=== PATIENT | female | born 2000 | race Caucasian/White ===

== ENCOUNTER 2022-12-06 10:58 | Emergency (ER) | payer BC ==
[~2022-12-06] VITALS: Ht 157.5 cm; Wt 54.5 kg
[2022-12-06 11:47] LABS: COLLECTION METHOD CLEAN CATCH
[2022-12-06 11:59] LABS: MUCOUS Present (NOT PRESENT); SQUAMOUS EPITHELIAL 0-2 /hpf (0-10); URINE BACTERIA Rare /hpf (NONE SEEN); URINE RBC 0-2 /hpf (0-2); URINE WBC 0-2 /hpf (0-2)
[2022-12-06 12:00] LABS: URINE APPEARANCE Clear (CLEAR/HAZY); URINE COLOR Yellow (YELLOW); URINE GLUCOSE Negative (NEGATIVE); URINE KETONE Negative (NEGATIVE); URINE PROTEIN(semi-quant) Negative (NEGATIVE)
[2022-12-06 12:01] LABS: URINE BLOOD Negative (NEGATIVE); URINE NITRATE Negative (NEGATIVE); URINE UROBILINOGEN 0.2 E.U/dL (0.2-1.0)
[2022-12-06] MEDS ORDERED: ZOFRAN ODT4 MG PO (12:38)
[2022-12-06 12:50] VITALS: BP 117/85; PULSE 97; TEMP 98.1
== END 2022-12-06 12:50 | disposition home or self-care (01) ==
LOC: COL.ER 10:58
PROVIDERS: Emergency Medicine
DX: S00.91XA Abrasion of unspecified part of head, initial encounter (principal); Z28.310 Unvaccinated for COVID-19; W18.30XA Fall on same level, unspecified, initial encounter; W22.8XXA Striking against or struck by other objects, initial encounter

== ENCOUNTER 2024-02-13 18:54 | Emergency (ER) | payer BC ==
[~2024-02-13] VITALS: Ht 157.5 cm; Wt 54.5 kg
[~2024-02-13 18:54] MED LIST: ZOFRAN ODT4 MG PO
[2024-02-13] MEDS ORDERED: PRISTIQ 50 MG T50 MG PO (19:05)
[2024-02-13] MEDS ORDERED: NS 1,000 ML IV ONE (19:15)
[2024-02-13 19:18] LABS: BASO # 0.1 K/mm3 (0.0-0.2); BASO % 0.7 % (0.0-2.0); EOS # 0.1 K/mm3 (0.0-0.7); EOS % 0.7 % (0.0-4.0); GRAN # 7.7 K/mm3 (1.4-6.5); GRAN % 72.4 % (42.2-75.2); HEMATOCRIT 38.9 % (37.0-47.0); HEMOGLOBIN 13.3 g/dl (12.5-16.0); LYMPH # 2.1 K/mm3 (1.2-3.4); MEAN CELL VOLUME 88 fl (80.0-100.0); MEAN CORPUSCULAR HEMOGLOBIN 30 pg (27-31); MEAN CORPUSCULAR HGB CONC 34 g/dl (33.0-37.0); MEAN PLATELET VOLUME 9.7 fl (7.4-10.4); MONO # 0.6 K/mm3 (0.1-0.6); MONO % 5.9 % (1.7-9.3); PLATELET COUNT 395 K/mm3 (130-400); RED BLOOD COUNT 4.44 M/mm3 (4.10-5.30); REDCELL DISTRIBUTION WIDTH-CV 14.2 % (11.5-14.5)
[2024-02-13] MEDS ORDERED: Ketorolac 15 MG/ML VIAL IV ONE (19:30)
[2024-02-13 19:54] LABS: COLLECTION METHOD CLEAN CATCH
[2024-02-13 20:07] LABS: URINE APPEARANCE CLEAR (CLEAR/HAZY); URINE BLOOD NEGATIVE (NEGATIVE); URINE COLOR YELLOW (YELLOW); URINE GLUCOSE NEGATIVE (NEGATIVE); URINE KETONE NEGATIVE (NEGATIVE); URINE NITRATE NEGATIVE (NEGATIVE); URINE PROTEIN(semi-quant) TRACE (NEGATIVE); URINE UROBILINOGEN 0.2 E.U/dL (0.2-1.0)
[2024-02-13 20:12] LABS: CREATININE, serum 0.73 mg/dL (0.57-1.11)
[2024-02-13 20:13] LABS: ALBUMIN 4.1 g/dL (3.5-5.0); CALCIUM 9.4 mg/dL (8.4-10.2)
[2024-02-13 20:45] LABS: BILIRUBIN,TOTAL 0.3 mg/dL (0.2-1.2)
[2024-02-13 21:09] VITALS: BP 113/80; PULSE 94; TEMP 98.4
== END 2024-02-13 21:29 | disposition home or self-care (01) ==
LOC: COL.ER 18:54
PROVIDERS: Physician Assistant
DX: R00.2 Palpitations (principal); R00.0 Tachycardia, unspecified; Z79.899 Other long term (current) drug therapy
CPT/HCPCS: J1885; J7030